=== PATIENT | female | born 1995 | race Caucasian/White ===

== ENCOUNTER 2016-06-16 11:43 | Emergency (ER) | payer OTHER ==
[2016-06-16 11:53] VITALS: RESP 16
--- NOTE | 2016-06-16 12:58 | EDPHY ---
H & P Time Seen by Provider: 06/16/16 11:48 HPI/ROS: CHIEF COMPLAINT: Throat pain and swelling HISTORY OF PRESENT ILLNESS: 21-year-old female presents to the emergency department with throat pain and swelling. For last 24 hours. The patient states that she has pain in the right side of her neck which is now worse when she moves her neck or when she swallows or when she looks up. She denies a sore throat or any other URI symptoms. She denies difficulty breathing. Denies fevers or chills. No reported trauma. Denies abdominal pain. REVIEW OF SYSTEMS: Constitutional: No fever, no chills. Eyes: No double or blurry vision. ENT: No sore throat. Respiratory: No cough, no shortness of breath. Cardiac: No chest pain. Gastrointestinal: No abdominal pain, vomiting or diarrhea. Genitourinary: No dysuria. Musculoskeletal: No neck or back pain. Skin: No rashes. Neurological: No headache. Past Medical/Surgical History: Negative Social History: [employer] student Smoking Status: Never smoked Physical Exam: General Appearance: Alert, no distress. Afebrile. Eyes: Pupils equal and round. Extraocular motions are all intact. ENT: Mouth: Mucous membranes moist. Mild posterior pharyngeal injection noted. The patient has tenderness with palpation to the right anterior lateral aspect of her neck in the right submandibular area. She has pain with range of motion of her neck. No muffled voice or trismus. Teeth are in good repair. No visible abscess. No evidence of peritonsillar abscess. No sublingual swelling. Respiratory: No wheezing, rhonchi, or rales, lungs are clear to auscultation. Cardiovascular: Regular rate and rhythm. Gastrointestinal: Abdomen is soft and nontender, no masses, no rebound or guarding, bowel sounds normal. Neurological: Alert and oriented x 3, cranial nerves II through XII grossly intact Skin: Warm and dry, no rashes. Musculoskeletal: Nontender to palpate along the cervical, thoracic or lumbar spine. Neck is supple. Extremities: Full range of motion and no peripheral edema. Psychiatric: Patient is oriented X 3, there is no agitation. Constitutional: Initial Vital Signs Temperature (C) 36.7 C 06/16/16 11:51 Heart Rate 78 06/16/16 11:51 Respiratory Rate 16 06/16/16 11:51 Blood Pressure 113/77 06/16/16 11:51 O2 Sat (%) 99 06/16/16 11:51 O2 Delivery Mode Room Air Allergies/Adverse Reactions: doxycycline Allergy (Verified 06/16/16 11:50) peanut Allergy (Verified 06/16/16 11:50) Home Medications: Medication Instructions Recorded Bcp 01/26/16 EPINEPHRINE [EPIPEN] 0.3 mg IM ONCE #2 syr 01/26/16 Amoxicillin/Clavulanate Pot 875 mg PO BID #20 tab 06/16/16 [Augmentin 875 mg tab] Medical Decision Making - Diagnostics Imaging Results: Imaging Impressions Neck CT 06/16/16 13:09 Impression: 1. No evidence of mass or lymphadenopathy within the neck. 2. Mild increase in number of benign appearing lymph nodes bilaterally. These could be reactive possibly from upper respiratory infection. Findings discussed with Terri Arauz PA-C at 13:58 hour, 06/16/2016. ED Course/Re-evaluation: 21-year-old female presents with sore throat and concerns about lymphadenopathy and swelling and difficulty swallowing. I recommended CT imaging soft tissue neck with IV contrast. I did discuss the pros and cons including radiation exposure. I was concerned about possible retropharyngeal abscess given her swelling and pain with removing her neck and swallowing. CT imaging was normal. She did have a large amount of prominent lymph nodes. No abscess or phlegmon noted. This was discussed with the patient. Patient will be started on Augmentin. She was given ENT referral. She was instructed to return if she developed fever , dysphagia, or if she felt worse in any way. Differential Diagnosis: Including but not limited to retropharyngeal abscess, peritonsillar abscess, viral lymphadenopathy, Nik's angina - Data Points Laboratory Results: 06/16/16 12:53 POC Hgb 15.3 gm/dL gm/dL (12.3-15.9) POC Hct 45 % % (35.5-47.5) POC Sodium 139 mEq/L mEq/L (134-144) POC Potassium 4.2 mEq/L mEq/L (3.3-5.0) POC Chloride 104 mEq/L mEq/L (96-108) POC BUN 20 mg/dL mg/dL (7-23) POC Creatinine 0.5 mg/dL L mg/dL (0.6-1.2) POC Glucose 84 mg/dL mg/dL (70-100) Point of Care Test Results: 06/16/16 12:53 POC Sodium 139 POC Potassium 4.2 POC Chloride 104 POC BUN 20 POC Creatinine 0.5 L POC Glucose 84 Departure - Departure Disposition: Home, Routine, Self-Care Clinical Impression: Sore throat, Lymphadenopathy Dysphagia Qualifiers: Dysphagia type: unspecified Qualified Code(s): R13.10 - Dysphagia, unspecified Condition: Good Instructions: Pharyngitis (ED), Lymphadenopathy (ED) Additional Instructions: Augmentin 875 mg twice daily for 10 days. Ibuprofen 600 mg every 8 hours as needed for pain. Return to the emergency department if you developed difficulty swallowing, fever, or if you feel worse in any way. Follow up with ENT as discussed. Referrals: Xu Constantino MD [Medical Doctor] - 2-3 days, call for appt. (ENT on-call) Stand Alone Forms: School Excuse Prescriptions: Amoxicillin/Clavulanate Pot [Augmentin 875 mg tab] 875 mg PO BID #20 tab
[2016-06-16] MEDS ORDERED: IOPAMIDOL (ISOVUE-300) 100 ML BTL IV ONE (13:18)
[2016-06-16 14:58] VITALS: O2SAT 97
[2016-06-16 14:59] VITALS: BP 111/69; PULSE 69; TEMP 97.7
== END 2016-06-16 14:59 | disposition home or self-care (01) ==
DX: R59.1 Generalized enlarged lymph nodes (principal); R13.10 Dysphagia, unspecified; Z91.010 Allergy to peanuts
CPT/HCPCS: 82947-QW; Q9967

== ENCOUNTER 2016-09-07 20:45 | Emergency (ER) | payer OTHER ==
[2016-09-07] MEDS ORDERED: FAMOTIDINE 20 MG/2 ML SDV IVP ONE (21:20)
[2016-09-07] MEDS ORDERED: FAMOTIDINE 20 MG/NACL 50 ML IV ONE (21:20)
[2016-09-07] MEDS ORDERED: NS 1,000 ML IV ONE (21:21)
[2016-09-07] MEDS ORDERED: methylPREDNISolone SOD SUCC 125 MG/2 ML VIAL IVP ONE (21:21)
--- NOTE | 2016-09-07 21:31 | EDPHY ---
H & P Stated Complaint: ate chipotle, vomited after then began having body wide rash/ redness Time Seen by Provider: 09/07/16 21:24 HPI/ROS: CHIEF COMPLAINT: Allergic reaction HISTORY OF PRESENT ILLNESS: Patient is a 21-year-old female with a history of allergies to peanuts and soy and doxycycline who comes to the emergency department after eating [employer]ipot[employer] this evening. She states that she vomited about half an hour after eating and then about 30 minutes later developed urticaria and pruritus. She states that her rash is gradually improved. She has not taken any medications. No swelling of her airway. No difficulty breathing. No fevers. No sick contacts. REVIEW OF SYSTEMS: Constitutional: denies: chills, fever, recent illness, recent injury EENTM: denies: blurred vision, double vision, nose congestion Respiratory: denies: cough, shortness of breath Cardiac: denies: chest pain, irregular heart rate, lightheadedness, palpitations Gastrointestinal/Abdominal: See HPI Genitourinary: denies: dysuria, frequency, hematuria, pain Musculoskeletal: denies: joint pain, muscle pain Skin: See HPI Neurological: denies: headache, numbness, paresthesia, tingling, dizziness, weakness Hematologic/Lymphatic: denies: blood clots, easy bleeding, easy bruising Immunologic/allergic: denies: HIV/AIDS, transplant EXAM: GENERAL: Well-appearing, well-nourished and in no acute distress. HEAD: Atraumatic, normocephalic. EYES: Pupils equal round and reactive to light, extraocular movements intact, sclera anicteric, conjunctiva are normal. ENT: TMs normal, nares patent, oropharynx clear without exudates. Moist mucous membranes. NECK: Normal range of motion, supple without lymphadenopathy or JVD. LUNGS: Breath sounds clear to auscultation bilaterally and equal. No wheezes rales or rhonchi. HEART: Regular rate and rhythm without murmurs, rubs or gallops. ABDOMEN: Soft, nontender, normoactive bowel sounds. No guarding, no rebound. No masses appreciated. BACK: No CVA tenderness, no spinal tenderness, step-offs or deformities EXTREMITIES: Normal range of motion, no pitting or edema. No clubbing or cyanosis. NEUROLOGICAL: Cranial nerves II through XII grossly intact. Normal speech, normal gait. 5/5 strength, normal movement in all extremities, normal sensation PSYCH: Normal mood, normal affect. SKIN: Faint diffuse urticaria to abdomen and back. Source: Patient Exam Limitations: No limitations - Personal History Tetanus Vaccine Date: < 10 years - Medical/Surgical History Hx Asthma: No Hx Chronic Respiratory Disease: No Hx Diabetes: No Hx Cardiac Disease: No Hx Renal Disease: No Hx Cirrhosis: No Hx Alcoholism: No Hx HIV/AIDS: No Hx Splenectomy or Spleen Trauma: No Other PMH: none - Family History Significant Family History: No pertinent family hx - Social History Smoking Status: Never smoked Alcohol Use: Sober Drug Use: None Constitutional: Initial Vital Signs Temperature (C) 37 C 09/07/16 20:57 Heart Rate 109 H 09/07/16 20:57 Respiratory Rate 16 09/07/16 20:57 Blood Pressure 131/97 H 09/07/16 20:57 O2 Sat (%) 97 09/07/16 20:57 O2 Delivery Mode Room Air Allergies/Adverse Reactions: gluten Allergy (Mild, Verified 09/07/16 21:00) soy Allergy (Mild, Verified 09/07/16 21:00) doxycycline Allergy (Verified 09/07/16 21:00) peanut Allergy (Verified 09/07/16 21:00) Home Medications: Medication Instructions Recorded Bcp 01/26/16 EPINEPHRINE [EPIPEN] 0.3 mg IM ONCE #2 syr 01/26/16 diphenhydrAMINE [Benadryl 50 MG 50 mg PO Q4-6PRN PRN #30 cap 09/07/16 (OTC)] predniSONE 60 mg PO DAILY #9 tab 09/07/16 Medical Decision Making ED Course/Re-evaluation: 10:15 p.m. the patient is feeling completely better. She is asking to be discharged. We discussed continued treatment at home. We discussed follow-up with customer success advocate . Differential Diagnosis: Partial list of the Differential diagnosis considered include but were not limited to; allergic reaction, urticaria and although unlikely based on the history and physical exam, I also considered anxiety, cellulitis, toxin. I discussed these differential diagnoses and the plan with the patient as well as the usual and expected course. The patient understands that the diagnosis is provisional and that in medicine we are not always correct and that further workup is often warranted. Usual and customary warnings were given. All of the patient's questions were answered. The patient was instructed to return to the emergency department should the symptoms at all worsen or return, otherwise to followup with the physician as we discussed. - Data Points Medications Given: Discontinued Medications Diphenhydramine HCl (Benadryl Injection) 50 mg IVP EDNOW ONE Stop: 09/07/16 21:22 Last Admin: 09/07/16 21:34 Dose: 50 mg Famotidine (Pepcid) 20 mg IVP EDNOW ONE Stop: 09/07/16 21:21 Last Admin: 09/07/16 21:33 Dose: 20 mg Famotidine/Sodium Chloride (Pepcid 20 Mg (Premix)) 50 mls @ 200 mls/hr IV EDNOW ONE Stop: 09/07/16 21:34 Last Admin: 09/07/16 21:33 Dose: 50 mls Sodium Chloride (Ns) 1,000 mls @ 0 mls/hr IV ONCE ONE PRN Reason: Wide Open Stop: 09/07/16 21:22 Last Admin: 09/07/16 21:34 Dose: 1,000 mls Methylprednisolone Sodium Succinate (Solu-Medrol) 125 mg IVP EDNOW ONE Stop: 09/07/16 21:22 Last Admin: 09/07/16 21:33 Dose: 125 mg Departure - Departure Disposition: Home, Routine, Self-Care Clinical Impression: Allergic reaction Qualifiers: Encounter type: initial encounter Qualified Code(s): T78.40XA - Allergy, unspecified, initial encounter Condition: Fair Instructions: Food Allergy (ED) Referrals: NONE *PRIMARY CARE P,. [Primary Care Provider] - As per Instructions Mindy Stallworth MD [[facility] [place] Primary Care Provider] - As per Instructions Prescriptions: diphenhydrAMINE [Benadryl 50 MG (OTC)] 50 mg PO Q4-6PRN PRN #30 cap PRN Reason: Itching predniSONE 60 mg PO DAILY #9 tab
[2016-09-07 22:30] VITALS: BP 122/85; PULSE 84; RESP 18; TEMP 97.5; O2SAT 98
== END 2016-09-07 22:44 | disposition home or self-care (01) ==
DX: T78.40XA Allergy, unspecified, initial encounter (principal)
CPT/HCPCS: 96365; J1200